=== PATIENT | male | born 1990 | race Two or more races ===

== ENCOUNTER 2017-06-04 10:14 | Emergency (ER) | payer SELFPAY ==
[~2017-06-04] VITALS: Ht 175.3 cm; Wt 103.0 kg
[2017-06-04 10:40] VITALS: BP 155/84
[2017-06-04] MEDS ORDERED: LORazepam 1mg tab ORAL ONE (11:00)
--- NOTE | 2017-06-04 11:15 | Emergency Room Report ---
History of Present Illness General Chief Complaint: Pain Source: Patient Present Illness HPI 26-year-old male presenting with left hand pain. Patient states that he fell yesterday, felt something click and he put it back in. Now complaining of pain and swelling to left hand. Also states that he suffers from anxiety. No other complaints Allergies: Coded Allergies: No Known Allergies (Unverified , 06/04/17) Patient History Past Medical History: see triage record Past Surgical History: none Pertinent Family History: none Reviewed Nursing Documentation: PMH: Agreed, PSxH: Agreed Nursing Documentation-PMH Past Medical History: No Stated History Review of Systems All Other Systems: negative except mentioned in HPI Physical Exam Vital Signs Date Time Temp Pulse Resp B/P (MAP) Pulse Ox O2 Delivery O2 Flow Rate FiO2 06/04/17 10:25 97.3 125 18 155/84 96 Room Air Sp02 EP Interpretation: reviewed, normal General Appearance: alert, GCS 15, non-toxic, mild distress Head: normocephalic, atraumatic Eyes: bilateral eye normal inspection, bilateral eye PERRL, bilateral eye EOMI ENT: normal ENT inspection, normal pharynx, normal voice, moist mucus membranes Neck: normal inspection, full range of motion, supple Respiratory: normal inspection, lungs clear, normal breath sounds, no respiratory distress, no retraction, no wheezing, speaking full sentences, chest symmetrical Cardiovascular #1: normal inspection, regular rate, rhythm, no edema, normal capillary refill Cardiovascular #2: 2+ radial (R), 2+ radial (L) Gastrointestinal: normal inspection, non tender, soft, non-distended, no guarding Genitourinary: no CVA tenderness Musculoskeletal: other - Left hand dorsum aspect with edema, no gross bony deformities, tenderness palpation, limited range of motion of the thumb, no snuffbox tenderness Neurologic: normal inspection, alert, oriented x3, responsive, motor strength/ tone normal, sensory intact, normal gait, speech normal Psychiatric: normal inspection, judgement/insight normal, memory normal Skin: normal inspection, normal color, no rash, warm/dry, well hydrated, normal turgor Procedures Splinting Splinting : Consent: Verbal Location: L thumb Pre-Made Type: velcro Splint: thumb spica Pre-Proc Neuro Vasc Exam: normal Post-Proc Neuro Vasc Exam: normal Patient Tolerated: Well Complications: None Medical Decision Making Diagnostic Impression: Primary Impression: Contusion ER Course 26-year-old male with left hand pain after fall DDX: Contusion versus fracture Plan: Pain control x-ray ER course: Patient has remained stable during ED stay. Placed in a thumb spica Disposition: Patient is to be discharged to home. Patient is instructed to follow up with their primary care doctor within 5 days. Patient is instructed to follow up with orthopedic doctor in one week if not better Strict return precautions discussed with patient such as fever, chills, worsening/severe pain, increased swelling of hand, which may indicate severe illness. Patient verbalizes understanding and agrees with plan. Please note that this Emergency Department Report was dictated using [employer] imager technology software, occasionally this can lead to erroneous entry secondary to interpretation by the dictation equipment Xray: Left hand Complete Indication: Pain EP Interpretation: Yes Interpretation: No dislocation, no soft tissue swelling, no fractures Impression: No acute disease Electronically signed by Jacobo Wild MD Last Vital Signs Date Time Temp Pulse Resp B/P (MAP) Pulse Ox O2 Delivery O2 Flow Rate FiO2 06/04/17 10:40 97.3 99 18 155/84 96 Room Air Disposition: HOME, SELF-CARE Condition: Improved Jacobo Wild M.D. Jun 04, 2017 11:15
--- NOTE | 2017-06-04 11:23 | Diagnostic Imaging Report ---
Indication: Reason For Exam: PAIN Technique: 3 views left hand Comparison: none Findings: No acute fractures. There is chronic appearing deformity of the base of the fifth distal phalanx. No dislocations. The joint spaces are preserved Impression: No acute bony trauma
[2017-06-04 11:27] VITALS: BP 142/80
== END 2017-06-04 11:40 | disposition home or self-care (01) ==
LOC: EMR 11:40
DX: S60.222A Contusion of left hand, initial encounter (principal); W19.XXXA Unspecified fall, initial encounter; Y92.9 Unspecified place or not applicable
CPT/HCPCS: 99283